=== PATIENT | male | born 1995 | race Caucasian/White ===

== ENCOUNTER 2018-01-28 20:23 | Emergency (ER) | payer OTHER ==
[~2018-01-28] VITALS: Ht 177.8 cm; Wt 98.0 kg
[2018-01-28] MEDS ORDERED: Zithromax250 MG PO (21:06)
[2018-01-28] MEDS ORDERED: ALBU90OI INH (21:06)
[2018-01-28] MEDS ORDERED: IBUP600 PO (21:06)
== END 2018-01-28 21:55 | disposition home or self-care (01) ==
LOC: ER 20:23
DX: J18.9 Pneumonia, unspecified organism (principal)
CPT/HCPCS: 71046; 99283